=== PATIENT | male | born 1965 | race Caucasian/White ===

== ENCOUNTER 2020-09-11 15:34 | Emergency (ER) | payer BC ==
[2020-09-11 18:49] LABS: HEMOGLOBIN 15.4 gm/dl (14.0-17.5); RED BLOOD COUNT 5.34 M/UL (4.20-5.50); WHITE BLOOD COUNT 6.9 K/UL (4.5-11.0)
[2020-09-11 19:10] LABS: BUN/CREATININE RATIO 18 (0-10)
[2020-09-11] MEDS ORDERED: ASPIRIN CHEWABL81 MG PO (20:30)
== END 2020-09-11 20:44 | disposition home or self-care (01) ==
LOC: ER1 15:34
PROVIDERS: Emergency Medicine
DX: U07.1 COVID-19 (principal)
CPT/HCPCS: 71045; 80053; 85025; 85379; 99285

== ENCOUNTER 2021-09-15 07:38 | Emergency (ER) | payer OTHER ==
[~2021-09-15 07:38] MED LIST: ASPIRIN CHEWABL81 MG PO
[2021-09-15 08:42] LABS: HEMOGLOBIN 16.7 gm/dl (14.0-17.5); RED BLOOD COUNT 5.87 M/UL (4.20-5.50); WHITE BLOOD COUNT 5.6 K/UL (4.5-11.0)
[2021-09-15 09:02] LABS: BUN/CREATININE RATIO 13 (0-10)
== END 2021-09-15 13:45 | disposition home or self-care (01) ==
LOC: ER1 07:38
PROVIDERS: Emergency Medicine
DX: H47.091 Other disorders of optic nerve, not elsewhere classified, right eye (principal)
CPT/HCPCS: 70496; 70498; 70543; 71045; 80053; 82550; 82553; 83874; 84484; 85025; 93005; 99284; A9577; Q9967